=== PATIENT | female | born 1995 | race Caucasian/White ===

== ENCOUNTER 2023-09-29 08:36 | Outpatient (CLI) | payer BC | END 2023-09-29 08:37 | disposition home or self-care (01) | LOC: CSHULT 08:36 | PROVIDERS: ATTEND Registered Nurse | DX: N93.9 Abnormal uterine and vaginal bleeding, unspecified (principal); R10.2 Pelvic and perineal pain; N32.9 Bladder disorder, unspecified | CPT/HCPCS: 76700; 76856 ==